=== PATIENT | female | born 1980 | race Caucasian/White ===

== ENCOUNTER → 2017-07-28 | Outpatient (CLI) | payer OTHER, BC ==
[~2017-07-28] MED LIST: DIPATR PO; HYDACE5 PO; IBUP800 PO; META800 PO; OXYACE5T PO; PROM25 PO; RXMETA800 PO; [UNRECOGNIZED DRUG - OTHER]
[2017-07-29 09:14] LABS: HCV Non Reactive (NR)
== END | disposition home or self-care (01) ==
LOC: LAB EV 08:47
PROVIDERS: Physician Assistant Surgical
DX: Z20.9 Contact with and (suspected) exposure to unspecified communicable disease (principal)
CPT/HCPCS: 84460; 86706; 86803; 87389

== ENCOUNTER → 2019-05-02 | Outpatient (CLI) | payer BC | END | disposition home or self-care (01) | LOC: LAB SHORT 08:56 → LAB EV 08:56 | DX: N39.0 Urinary tract infection, site not specified (principal) | CPT/HCPCS: 87077; 87086; 87186 ==

== ENCOUNTER 2019-05-26 10:46 | Day surgery (SDC) | payer BC ==
[~2019-05-26] VITALS: Ht 162.6 cm; Wt 77.6 kg
[~2019-05-26 10:46] MED LIST changes: +Armour Thyroid120 MG PO; +IBUP400 PO
--- NOTE | 2019-05-26 11:35 | NUR ---
History, Chart, Medications and Allergies reviewed before start of procedure.Ambulatory in Day Surgery.Lungs clear T/O to Auscultation. Patient States Post-Procedure ride home has been arranged. Patient confirms NPO status and agrees with scheduled surgery.PT HAS GLASSES ON, NO JEWELRY, HEARING AIDES, DENTURES.
--- NOTE | 2019-05-26 18:05 | NUR ---
PT TO SURGICAL FLOOR FROM PACU PT ARRIVED TO SURGICAL FLOOR FROM PACU AT APPROX. 1800 TODAY. RATES PAIN 7/10, MEDICATED PER EMAR. KPAD IN PLACE. ABD DRESSING X4 C/D/I WITH NO DRAINAGE NOTED. SCANT VAGINAL BLEEDING ON DONTAE PAD. MINER IN PLACE AND DRAINING CLEAR YELLOW URINE. NOW RATES PAIN AT 6/10. TOLERATING SIPS OF WATER. VSS AND A&O. FAMILY AT BEDSIDE. WILL CONT MONITOR AND REPORT TO ONCOMING RN.
--- NOTE | 2019-05-26 19:01 | NUR ---
WONDERLY IN TO SEE PT AT THIS TIME
[2019-05-27 04:33] LABS: BASOPHILS ABSOLUTE AUTO 0.01 K/mm3 (0.00-0.23); BASOPHILS PERCENT AUTO 0 % (0-2); EOSINOPHILS PERCENT AUTO 0 % (0-6); Hemoglobin 12.2 g/dL (11.5-16.0); IMMATURE GRAN ABSOLUTE AUTO 0.04 K/mm3 (0.00-0.10); IMMATURE GRAN PERCENT AUTO 0 % (0-1); LYMPHOCYTES ABSOLUTE AUTO 0.62 K/mm3 (0.84-5.20); LYMPHOCYTES PERCENT AUTO 5 % (21-46); MONOCYTES PERCENT AUTO 5 % (4-13); Mean Corpuscular HGB 30.2 pg (26.0-34.0); Mean Corpuscular HGB Conc 33.9 g/dL (31.5-36.5); Mean Corpuscular Volume 89 fL (80-100); Mean Platelet Volume 10.7 fL (9.1-12.4); NEUTROPHILS ABSOLUTE AUTO 10.59 K/mm3 (1.96-9.15); NEUTROPHILS PERCENT AUTO 89 % (41-73); Platelet Count 226 K/mm3 (150-400); RDW Coefficient Variation 12.3 % (11.7-14.2); RDW Standard Deviation 40.1 fL (35.1-46.3); Red Blood Cell Count 4.04 M/mm3 (3.80-5.20); White Blood Cell Count 11.86 K/mm3 (4.00-11.30)
--- NOTE | 2019-05-27 04:36 | NUR ---
MINER REMOVED. PT TOLERATED WELL. PT RESTING IN BED. DENIES NEEDS AT THIS TIME.
--- NOTE | 2019-05-27 04:41 | NUR ---
SHIFT SUMMARY PT POD 1 LAP ASSIST VAG HYSTER. PT AAOX4 VSS. MEDICATED FOR NAUSEA AND PAIN PER EMAR. NEEDED BREAKTHROUGH PAIN X2. PT HAS BEEN UP AND AMBULATING WITH MINIMAL ASSIST. DENIES PASSING GAS AT THIS TIME. LAP SITES CDI. MINER REMOVED. PT TOLERATED WELL, AWAITING FIRST VOID POST CATH REMOVAL. PT HAS BEEN RESTING IN BED. FAMILY MEMBER AT BEDSIDE UNTIL APPROX 2 AM.
--- NOTE | 2019-05-27 05:50 | NUR ---
PT HAS BEEN UP TO THE RESTROOM AND VOIDED. PT TOLERATED WELL. IND TO BATHROOM
--- NOTE | 2019-05-27 08:36 | NUR ---
C/O NAUSEA AND BLOATING THIS AM, TAKING FEW BITES OF OATMEAL, MEDICATED FOR NAUSEA, ENCOURAGED TO AMBULATE, REPORTS VOIDING WITHOUT DIFFICULTY, CONT. TO MONITOR FOR ANY CHANGES.
[2019-05-27] MEDS ORDERED: IBUP800 PO (11:55)
[2019-05-27] MEDS ORDERED: Milk Of Ma400 MG/5 M PO (11:56)
[2019-05-27] MEDS ORDERED: DOCU100 PO (11:56)
[2019-05-27] MEDS ORDERED: TRAM50 PO (11:58)
[2019-05-27] MEDS ORDERED: SIME80CH PO (11:59)
[2019-05-27] MEDS ORDERED: PROM25 PO (11:59)
== END 2019-05-27 12:22 | disposition home or self-care (01) ==
LOC: ORSCMMR 10:46 → ORD 11:00 → ORSCMMR 11:00 → ORD 11:30 → ORSCMMR 12:30 → ORD 12:30 → SURS 17:55 → ORSCMMR 05-27 12:22 → SURS 05-27 12:22
PROVIDERS: Obstetrics & Gynecology
PROC: 0UT9FZZ Resection of Uterus, Via Natural or Artificial Opening With Percutaneous Endoscopic Assistance (ICD-10-PCS; principal; 2019-05-26 12:30)
PROC: 8E0W4CZ Robotic Assisted Procedure of Trunk Region, Percutaneous Endoscopic Approach (ICD-10-PCS; principal; 2019-05-26 12:30)
PROC: 0UT2FZZ Resection of Bilateral Ovaries, Via Natural or Artificial Opening With Percutaneous Endoscopic Assistance (ICD-10-PCS; principal; 2019-05-26 12:30)
PROC: 0UT7FZZ Resection of Bilateral Fallopian Tubes, Via Natural or Artificial Opening With Percutaneous Endoscopic Assistance (ICD-10-PCS; principal; 2019-05-26 12:30)
DX: N92.0 Excessive and frequent menstruation with regular cycle (principal); N94.10 Unspecified dyspareunia; N94.6 Dysmenorrhea, unspecified; R10.2 Pelvic and perineal pain; E03.9 Hypothyroidism, unspecified; Z87.891 Personal history of nicotine dependence; Z79.899 Other long term (current) drug therapy
CPT/HCPCS: 58552; S2900; 36415; 85025; 86850; 86900; 86901; 88307; J0690; J1170; J1885; J2250; J2370; J2405; J2704; J2710; J2765; J3010; J7120

== ENCOUNTER 2020-12-05 18:42 | Emergency (ER) | payer BC ==
[~2020-12-05] VITALS: Ht 170.2 cm; Wt 74.8 kg
[~2020-12-05 18:42] MED LIST changes: +DOCU100 PO; +Milk Of Ma400 MG/5 M PO; +SIME80CH PO; +TRAM50 PO
== END 2020-12-05 19:18 | disposition home or self-care (01) ==
LOC: ER 18:42
DX: U07.1 COVID-19 (principal); Z79.899 Other long term (current) drug therapy
CPT/HCPCS: 99282

== ENCOUNTER → 2022-10-14 | Outpatient (CLI) | payer BC | LOC: LAB 09:43 → LAB SHORT 09:43 | DX: D18.09 Hemangioma of other sites (principal) | CPT/HCPCS: 88305 ==

== ENCOUNTER → 2024-02-16 | Outpatient (CLI) | payer BC | END | disposition home or self-care (01) | LOC: LAB SHORT 09:15 → LAB 09:15 | DX: N30.00 Acute cystitis without hematuria (principal) | CPT/HCPCS: 87077; 87086; 87186 ==